=== PATIENT | male | born 2005 | race Caucasian/White ===

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

== ENCOUNTER → 2023-06-06 | Outpatient (REF) | LOC: M EMP 09:00 | PROVIDERS: ATTEND Family Medicine | DX: Z11.52 Encounter for screening for COVID-19 (principal) ==